=== PATIENT | female | born 1975 | race Caucasian/White ===

== ENCOUNTER → 2020-09-03 | Outpatient (CLI) | payer OTHER, BC ==
--- NOTE | 2020-09-03 15:24 | KCIC ---
Bilateral diagnostic digital mammograms with 3-D tomosynthesis: Reason for examination: Nodule felt by clinician. Inferior breast pain for a few months.. Comparison is made to previous studies dated 05/13/2016. Bilateral mammograms in CC and oblique projections were obtained with 2-D imaging and 3-D tomosynthesis imaging on a Siemens Inspiration unit and reviewed on the workstation. Interpretation was made with the benefit of CAD. The skin and nipples show no abnormalities. No abnormal axillary lymph nodes are seen. The breast parenchyma is heterogeneously dense. (Breast density: Category C.) There are some nodular areas of parenchymal asymmetry in the left breast posterior superiorly and posterior laterally. No suspicious abnormality seen in the right breast. There are no suspicious calcifications seen. Impression: No suspicious abnormality seen in the right breast. Small nodular areas of parenchymal asymmetry of the left breast. Ultrasound to follow. Your patient's mammogram demonstrates that she has dense breast tissue (breast density category C or D), which could hide abnormalities, and if she has other risk factors for breast cancer that have been identified, she might benefit from supplemental screening tests that may be suggested by you as her ordering physician. Dense breast tissue, in and of itself, is a relatively common condition. Therefore, this information is not provided to cause undue concern, but rather to raise your awareness and to promote discussion with your patient regarding the presence of other risk factors, in addition to dense breast tissue. Your patient's mammography results will be sent to her. BI-RAD Category 0: Incomplete. Needs additional imaging evaluation. Bilateral breast ultrasound: Ultrasound examination was performed of both breasts and axilla. In the right breast, there is some ductal ectasia. There are some mild fibrocystic type changes at the 6:00 position anteriorly. No suspicious nodules are seen. No abnormal appearing lymph nodes are seen in the right axilla. In the left breast, there is a small 4.1 mm hypoechoic fibrocystic lesion in the 6:00 position 1 cm from the nipple. There is a 3.2 mm hypoechoic fibrocystic type lesion at the 8:00 position 6 cm from the nipple. There is also a small focus of fibrocystic-type change measuring 5 mm in size in the retroareolar 9:00 position. There is a small 4.6 mm cyst in the retroareolar position of the left breast. No suspicious lesions are seen. No abnormal appearing lymph nodes are seen in the left axilla. IMPRESSION: Several small fibrocystic type lesions in the left breast and some minimal fibrocystic changes in the anterior 6:00 position of the right breast. Recommend 6 month follow-up with ultrasound. BI-RADS Category 3: Probably Benign. "Our facility is accredited by the [employer] Mammography [employer]." This patient's information has been entered into a reminder system for the patient to be notified with the results of her examination and a target date for the next mammogram. Electronically signed by: Brit Rollins MD (09/03/2020 3:21 PM) [email or web address]
== END ==
LOC: KCIC MAMMO 08:55
PROVIDERS: ATTEND Obstetrics & Gynecology
DX: N60.41 Mammary duct ectasia of right breast (principal); N60.01 Solitary cyst of right breast; N63.20 Unspecified lump in the left breast, unspecified quadrant
CPT/HCPCS: 76641; 77066; G0279; 77062

== ENCOUNTER → 2021-03-05 | Outpatient (CLI) | payer OTHER, BC ==
--- NOTE | 2021-03-05 14:59 | KCIC ---
Bilateral breast ultrasound: Reason for examination: Follow-up nodules. Comparison is made to previous study dated 09/03/2020. Ultrasound examination of the breasts and axilla was performed bilaterally. In the right breast, there is some mild ductal ectasia in the retroareolar 6:00 position. No other cy stic or solid nodules are seen. No abnormal appearing lymph nodes are seen in the right axilla. In the left breast, there continues to be a small 3.4 mm hypoechoic fibrocystic lesion at the 6:00 po sition 1 cm from the nipple which has shown a slight decrease in overall size. At the 8:00 position 6 cm from the nipple, there is a small 3.6 mm hypoechoic fibrocystic type lesion present which is stab le. There is some ductal ectasia with some minimal fibrocystic changes in the retroareolar 9:00 posit ion which has improved. There continues to be a 3.9 mm cyst in the retroareolar 3:00 position. No swathi picious nodules are seen. No abnormal appearing lymph nodes are seen in the left axilla. IMPRESSION: Some minimal fibrocystic changes bilaterally which show interval improvement. No suspicious abnormali ties are seen. Recommend routine mammographic follow-up. BI-RADS Category 2: Benign. "Our facility is accredited by the [employer] Mammography [employer]." This patient's information has been entered into a reminder system for the patient to be notified wit h the results of her examination and a target date for the next mammogram. Electronically signed by: Brit Rollins MD (03/05/2021 2:57 PM) [email or web address]
== END ==
LOC: KCIC US 13:48
PROVIDERS: ATTEND Obstetrics & Gynecology
DX: N60.41 Mammary duct ectasia of right breast (principal)
CPT/HCPCS: 76641